=== PATIENT | female | born 1945 | race Caucasian/White ===

== ENCOUNTER 2017-03-21 21:24 | Emergency (ER) | payer MEDICARE, OTHER ==
[2017-03-21 21:35] VITALS: BP 104/72
[2017-03-22] MEDS ORDERED: KETOROLAC TROMETHAMINE INJ/PF 30 MG/1 ML SDV IM ONE (00:09)
--- NOTE | 2017-03-22 00:15 | ER Document Report ---
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 Patient states that she has soreness to the bilateral neck traveling down into her trapezius muscle bilaterally. Patient denies any other trauma or injury. She has not had any numbness or tingling. Patient states that she did have an illness last , but that has since resolved. Patient has been feeling well since then. No other concerns or complaints. Denies any surgery or injection into her neck. Denies IV drug use. Denies any headache, fever, head injury, changes in vision/speech/ mentation/hearing, URI, sore throat, chest pain, palpitations, syncope, cough, shortness of breath, wheeze, dyspnea, abdominal pain, nausea/vomiting/diarrhea, urinary retention, dysuria, hematuria, loss of control of bowel or bladder, numbness/tingling, saddle anesthesia, muscle paralysis/weakness, or rash. - ROS Notes: REVIEW OF SYSTEMS: CONSTITUTIONAL : Denies fever, chills, or sweats. Denies recent illness. EENT: Denies eye, ear, throat, or mouth pain or symptoms. Denies nasal or sinus congestion or discharge. Denies throat, tongue, or mouth swelling or difficulty swallowing. CARDIOVASCULAR: Denies chest pain. Denies palpitations or racing or irregular heart beat. Denies ankle edema. RESPIRATORY: Denies cough, cold, or chest congestion. Denies shortness of breath, difficulty breathing, or wheezing. GASTROINTESTINAL: Denies abdominal pain or distention. Denies nausea, vomiting , or diarrhea. Denies blood in vomitus, stools, or per rectum. Denies black, tarry stools. Denies constipation. GENITOURINARY: Denies difficulty urinating, painful urination, burning, frequency, blood in urine, or discharge. MUSCULOSKELETAL: see hpi SKIN: Denies rash, lesions or sores. NEUROLOGICAL: Denies confusion or altered mental status. Denies passing out or loss of consciousness. Denies dizziness or lightheadedness. Denies headache. Denies weakness or paralysis or loss of use of either side. Denies problems with gait or speech. Denies sensory loss, numbness, or tingling. Denies seizures. PSYCHIATRIC: Denies anxiety or stress. Denies depression, suicidal ideation, or homicidal ideation. ALL OTHER SYSTEMS REVIEWED AND NEGATIVE. Dictation was performed using [employer] voice recognition software Past Medical History - Social History Smoking Status: Unknown if Ever Smoked Family History: Reviewed & Not Pertinent - Past Medical History Cardiac Medical History: Reports: Hx Hypertension GI Medical History: Reports: Hx Ulcer Musculoskeltal Medical History: Reports Hx Arthritis Past Surgical History: Reports: Hx Appendectomy, Hx Bowel Surgery - x2, Hx Cholecystectomy, Hx Hysterectomy - Immunizations Hx Diphtheria, Pertussis, Tetanus Vaccination: Yes Vertical Provider Document - CONSTITUTIONAL Agree With Documented VS: Yes Notes: PHYSICAL EXAMINATION: GENERAL: Well-appearing, well-nourished and in no acute distress. A&Ox4 HEAD: Atraumatic, normocephalic. EYES: Pupils equal round and reactive to light, extraocular movements intact, sclera anicteric, conjunctiva are normal. ENT: EAC clear b/l. TM's intact b/l without erythema, fluid, or perforation. Nares patent and without discharge. oropharynx clear without exudates. No tonsilar hypertrophy or erythema. Moist mucous membranes. No sinus tenderness. NECK: Normal range of motion, supple without lymphadenopathy. No rigidity/ meningismus. No vertebral point tenderness, step-offs, erythema, swelling, or deformity noted. + tenderness to the c-paraspinal mm and trap mm b/l. + mild spasming. LUNGS: Breath sounds clear to auscultation bilaterally and equal. No wheezes rales or rhonchi. HEART: Regular rate and rhythm without murmurs, rubs, gallops. ABDOMEN: Soft, nontender, nondistended abdomen. No guarding, no rebound. No masses appreciated. Normal bowel sounds present. No CVA tenderness bilaterally. Musculoskeletal: UE's b/l: FROM to passive/active. Strength 5+/5. No focal deficits. N/V intact. Extremities: No cyanosis, clubbing, or edema b/l. Peripheral pulses 2+. Capillary refill less than 3 seconds. NEUROLOGICAL: MMSE intact. Cranial nerves grossly intact. Normal speech, normal gait. Normal sensory, motor exams PSYCH: Normal mood, normal affect. SKIN: Warm, Dry, normal turgor, no rashes or lesions noted. - INFECTION CONTROL TRAVEL OUTSIDE OF THE [place] IN LAST 30 DAYS: No - RESPIRATORY O2 Sat by Pulse Oximetry: 95 Course - Re-evaluation Re-evalutation: 03/22/17 00:14 Patient is an afebrile, well-hydrated, 71-year-old female who presents the ED with acute on chronic cervicalgia, suspect strain with spasming. Vitals are stable. PE is otherwise unremarkable for any focal neurological deficits. No imaging or lab work warranted at this time based on H&P. Low suspicion for any meningitis, sepsis, fracture, expanding/ruptured AAA, cauda equina syndrome, epidural mass lesion/abscess, herniated disc causing severe spinal stenosis, or other systemic infection at this time. Patient is aware that her condition can change from initial presentation and that she needs monitor symptoms closely for any acute changes. Toradol 15 mg given IM today along with a heat pack. Patient only takes oxycodone at home for her chronic pain. Patient requesting a muscle relaxer. I will send her home with prescription for baclofen and voltaren gel. Conservative measures for symptoms otherwise. Recheck with your PCM as scheduled in 2 days. Consider consult with orthopedics/physical therapy. Return to the ED with any worsening/concerning symptoms otherwise as reviewed discharge. Patient is in agreement. - Vital Signs Vital signs: Temp Pulse Resp BP Pulse Ox 99.5 F 88 18 104/72 95 03/21/17 21:33 03/21/17 21:33 03/21/17 21:33 03/21/17 21:33 03/21/17 21:33 Discharge - Discharge Clinical Impression: Cervicalgia Condition: Stable Disposition: HOME, SELF-CARE Instructions: Neck Injury (Cervical Strain) ([facility]), Muscle Relaxers ([facility]) Additional Instructions: Rest, Ice Tylenol/ibuprofen as needed Light stretches daily Strength exercises as able Moist heat and massage may help F/u with your PCP in 3-5 days for a recheck Consider consult(s) with Orthopedics/physical therapy for ongoing/worsening symptoms Return to the ED with any worsening symptoms and/or development of fever, headache, chest pain, palpitations, syncope, shortness of breath, trouble breathing, abdominal pain, n/v/d, muscle weakness/paralysis, urinary retention, loss of control of bowel/bladder, saddle anesthesia, numbness/tingling, swelling , redness, or other worsening symptoms that are concerning to you. Prescriptions: Baclofen [Baclofen 10 mg Tablet] 5 - 10 mg PO BID PRN #10 tablet PRN Reason: Diclofenac Sodium [Voltaren] 4 gm TP QID PRN #100 gel..gm. PRN Reason: Referrals: [facility] (JUAN DANIEL) [Provider Group] - Follow up as needed
== END 2017-03-22 00:41 | disposition home or self-care (01) ==
LOC: ER 21:24
DX: M54.2 Cervicalgia (principal); I10 Essential (primary) hypertension; G89.29 Other chronic pain; M54.9 Dorsalgia, unspecified; Z90.49 Acquired absence of other specified parts of digestive tract; Z90.710 Acquired absence of both cervix and uterus
CPT/HCPCS: 99283; 96372; J1885

== ENCOUNTER → 2018-06-12 | Outpatient (CLI) | payer MEDICARE, OTHER ==
--- NOTE | 2018-06-12 12:24 | RADIOLOGY REPORT (SQ) ---
EXAM DESCRIPTION: MRI RT LOWER JOINT WITHOUT COMPLETED DATE/TIME: 06/12/2018 11:38 am REASON FOR STUDY: PAIN IN RIGHT KNEE M25.561 PAIN IN RIGHT KNEE COMPARISON: None. TECHNIQUE: Rightknee images acquired and stored on PACS. Multiplanar images include fat sensitive s equences as T1, water sensitive sequences as FST2 or STIR, cartilage sensitive sequences as FSPD, and gradient echo sequences. LIMITATIONS: None. FINDINGS: JOINT AND BURSAE: Small suprapatellar knee joint effusion. No Mancuso's cyst. BONE CORTEX AND MARROW: No marrow signal abnormalities worrisome for occult fracture or aggressive ma rrow replacement process. ACL: Intact. No degeneration or ganglion cyst. PCL: Intact. MCL: Intact. No periligamentous edema or fluid. LCL: Intact. No periligamentous edema or fluid. MEDIAL MENISCUS: Small inner free edge tear midbody medial meniscus on coronal image 15. No parameni scal cyst. LATERAL MENISCUS: Diffuse horizontal tear mid body and posterior horn lateral meniscus. No paramenis ludwig cyst MEDIAL COMPARTMENT: High-grade chondromalacia weight-bearing surface medial femoral condyles. Mild i rregularity of the articular surface on coronal images 14 and 15, with subcortical edema in the media l femoral condyle. No osteophytes. LATERAL COMPARTMENT: Cartilage preserved. No bone bruises or reactive marrow edema. No osteophytes. PATELLA: Mild medial patellar facet chondromalacia. No subchondral cysts. Medial and lateral retinacu la intact. EXTENSOR MECHANISM: Intact. Quadriceps and patella tendons normal. SOFT TISSUES: Adjacent muscles and subcutaneous tissues normal. Normal flow void in popliteal artery and vein. OTHER: No other significant finding. IMPRESSION: Osteoarthritis medial compartment with subcortical edema weight-bearing surface medial f emoral condyles Small meniscal tear midbody medial meniscus. Diffuse horizontal tear lateral meniscus without parameniscal cyst TECHNICAL DOCUMENTATION: JOB ID: [id number] [employer]- All Rights Reserved Reading location - IP/workstation name: [facility]
== END ==
LOC: RAD 10:47
PROVIDERS: ATTEND Orthopaedic Surgery
DX: M25.561 Pain in right knee (principal); M22.41 Chondromalacia patellae, right knee; M25.461 Effusion, right knee

== ENCOUNTER → 2018-07-03 | Outpatient (CLI) | payer MEDICARE, OTHER ==
--- NOTE | 2018-07-03 09:48 | EKG REPORT ---
SEVERITY:- ABNORMAL ECG - SINUS RHYTHM LEFT VENTRICULAR HYPERTROPHY : Confirmed by: Deisi Cabrera MD 03-Jul-2018 09:47:48
[2018-07-03 10:37] LABS: ALANINE AMINOTRANSFERASE 17 U/L (9-52); ALBUMIN 4.5 g/dL (3.5-5.0); ALKALINE PHOSPHATASE 105 U/L (38-126); ANION GAP 12 (5-19); ASPARTATE AMINO TRANSFERASE 27 U/L (14-36); BILIRUBIN,DIRECT 0.4 mg/dL (0.0-0.4); BILIRUBIN,TOTAL 0.5 mg/dL (0.2-1.3); BLOOD UREA NITROGEN 15 mg/dL (7-20); CALCIUM 10.3 mg/dL (8.4-10.2); CARBON DIOXIDE 27 mmol/L (22-30); CHLORIDE 103 mmol/L (98-107); GLUCOSE 87 mg/dL (75-110); SODIUM 142.4 mmol/L (137-145); TOTAL PROTEIN 7.9 g/dL (6.3-8.2)
[2018-07-03 10:50] LABS: ABSOLUTE BASOPHILS # (AUTO) 0.1 10^3/uL (0.0-0.2); ABSOLUTE EOSINOPHILS # (AUTO) 0.4 10^3/uL (0.0-0.6); ABSOLUTE LYMPHOCYTES (AUTO) 1.5 10^3/uL (0.5-4.7); ABSOLUTE MONOCYTES (AUTO) 0.5 10^3/uL (0.1-1.4); ABSOLUTE NEUT (AUTO) 2.7 10^3/uL (1.7-8.2); BASOPHILS % (AUTO) 1.2 % (0-2); EOSINOPHILS % (AUTO) 8.5 % (0-6); HEMATOCRIT 41.2 % (36.0-47.0); HEMOGLOBIN 13.7 g/dL (12.0-15.5); LYMPHOCYTES % (AUTO) 28.7 % (13-45); MEAN CORPUSCULAR HGB CONC 33.3 g/dL (32.0-36.0); MEAN CORPUSCULAR VOLUME 81 fl (80-97); MONOCYTES % (AUTO) 9.7 % (3-13); PLATELET COUNT 267 10^3/uL (150-450); RED BLOOD COUNT 5.08 10^6/uL (3.72-5.28); RED CELL DISTRIBUTION WIDTH 14.5 % (11.5-14.0); SEGMENTED NEUTROPHILS % (AUTO) 51.9 % (42-78); TOTAL CELLS COUNTED % (AUTO) 100 %; WHITE BLOOD COUNT 5.2 10^3/uL (4.0-10.5)
== END ==
LOC: OD 09:13
PROVIDERS: ATTEND Physician Assistant
DX: I10 Essential (primary) hypertension (principal); Z11.2 Encounter for screening for other bacterial diseases
CPT/HCPCS: 36415; 80053; 85025; 87070; 93005; 93010